=== PATIENT | male | born 1980 | race Caucasian/White ===

== ENCOUNTER 2018-08-01 02:01 | Inpatient (IN) | payer SELFPAY ==
[~2018-08-01] VITALS: Ht 160 cm; Wt 87.8 kg
[2018-08-01 02:06] VITALS: Ht 160 cm; Wt 87.8 kg
[2018-08-01 03:08] LABS: BASOPHIL % 0.4 % (0-2); PLATELET COUNT 284 x10^3mcL (130-400); RED CELL DISTRIBUTION WIDTH 13.2 % (11.5-14.5)
[2018-08-01 03:13] LABS: ALBUMIN 3.5 g/dL (3.4-5.0); ALKALINE PHOSPHATASE 119 U/L (46-116); BILIRUBIN TOTAL 0.4 mg/dL (0.20-1.00); CALCIUM 8.3 mg/dL (8.5-10.1); CARBON DIOXIDE 28.1 mmol/L (21-32); CHLORIDE SERUM 99 mmol/L (98-107); CREATININE SERUM 1.3 mg/dL (0.7-1.3); GFR1 > 60 mL/min; LIPASE 195 IU/L (73-393); SODIUM SERUM 136 mmol/L (136-145); TOTAL PROTEIN, SERUM 7.6 g/dL (6.4-8.2)
[2018-08-01 03:25] LABS: AST/SGOT 54 U/L (15-37)
[2018-08-01 03:26] LABS: GLUCOSE SERUM 146 mg/dL (74-106)
[2018-08-01 03:34] LABS: ALT/SGPT 62 U/L (16-63)
[2018-08-01 06:33] LABS: CHOLESTEROL 199 mg/dL (<200); MAGNESIUM 1.9 mg/dL (1.8-2.4); PHOSPHOROUS 3.3 mg/dL (2.5-4.9)
[2018-08-01 06:37] LABS: AMYLASE 125 U/L (25-115); CHOLESTEROL/HDL RATIO 6.4; HDL CHOLESTEROL 31 mg/dL (40-60); TRIGLYCERIDES 651 mg/dL (<150)
[2018-08-01 06:39] LABS: T3 TOTAL 1.58 ng/mL
[2018-08-01 06:43] LABS: FREE T4 1.17 ng/dL (0.76-1.46); FREE THYROXINE INDEX 3.7 ug/dL (1.4-4.5)
[2018-08-01 07:48] VITALS: BP 172/123
[2018-08-01 09:28] VITALS: BP 162/117
[2018-08-01 12:55] VITALS: BP 177/115
[2018-08-01 14:08] LABS: microscopic required? YES; urine erythrocyte NEGATIVE (NEGATIVE)
[2018-08-01 14:15] LABS: AMPHETAMINE QUAL UR NONE DETECTED (See below)
[2018-08-01 17:40] VITALS: BP 160/110
[2018-08-01 21:20] VITALS: BP 157/98
[2018-08-02 04:53] VITALS: BP 132/89
[2018-08-02 06:34] LABS: BASOPHIL % 0.6 % (0-2); PLATELET COUNT 260 x10^3mcL (130-400); RED CELL DISTRIBUTION WIDTH 13.7 % (11.5-14.5)
[2018-08-02 06:38] LABS: CALCIUM 8.4 mg/dL (8.5-10.1); CARBON DIOXIDE 28.6 mmol/L (21-32); CHLORIDE SERUM 107 mmol/L (98-107); GFR1 > 60 mL/min; GLUCOSE SERUM 109 mg/dL (74-106); POTASSIUM SERUM 3.7 mmol/L (3.5-5.1); SODIUM SERUM 142 mmol/L (136-145)
[2018-08-02 09:36] VITALS: BP 183/139
[2018-08-02 11:29] VITALS: BP 191/139
[2018-08-02 12:46] VITALS: BP 198/140
[2018-08-02 13:26] VITALS: BP 155/118
[2018-08-02 13:39] VITALS: BP 155/118
== END 2018-08-02 15:32 | disposition home or self-care (01) | DRG 205 ==
LOC: ED 02:01 → DU 05:51
PROVIDERS: Emergency Medicine; Family Medicine
DX: M94.0 Chondrocostal junction syndrome [Tietze] (principal); N17.0 Acute kidney failure with tubular necrosis; I24.9 Acute ischemic heart disease, unspecified; I10 Essential (primary) hypertension; E87.6 Hypokalemia; E78.5 Hyperlipidemia, unspecified; E02 Subclinical iodine-deficiency hypothyroidism; F10.10 Alcohol abuse, uncomplicated; Y90.9 Presence of alcohol in blood, level not specified
CPT/HCPCS: 83880; 84439; G0480; J2060; J3490; J7030

== ENCOUNTER 2018-08-13 12:51 | Inpatient (IN) | payer MEDICAID ==
[~2018-08-13] VITALS: Ht 160 cm; Wt 86.7 kg
[2018-08-13 12:57] VITALS: Ht 160 cm; Wt 86.7 kg
[2018-08-13 15:25] LABS: BASOPHIL % 0.7 % (0-2); PLATELET COUNT 260 x10^3mcL (130-400); RED CELL DISTRIBUTION WIDTH 13.3 % (11.5-14.5)
[2018-08-13 15:39] LABS: CALCIUM 8.9 mg/dL (8.5-10.1); CARBON DIOXIDE 25.5 mmol/L (21-32); CHLORIDE SERUM 101 mmol/L (98-107); CREATININE SERUM 1.1 mg/dL (0.7-1.3); GFR1 > 60 mL/min; GLUCOSE SERUM 98 mg/dL (74-106); POTASSIUM SERUM 3.2 mmol/L (3.5-5.1); SODIUM SERUM 139 mmol/L (136-145)
[2018-08-13 15:51] LABS: ALBUMIN 4.2 g/dL (3.4-5.0); ALKALINE PHOSPHATASE 120 U/L (46-116); ALT/SGPT 87 U/L (16-63); AST/SGOT 39 U/L (15-37); BILIRUBIN TOTAL 0.82 mg/dL (0.20-1.00); FREE T4 1.08 ng/dL (0.76-1.46); LIPASE 186 IU/L (73-393)
[2018-08-13 15:56] LABS: TOTAL PROTEIN, SERUM 8.4 g/dL (6.4-8.2)
[2018-08-13 16:18] LABS: UA SPECIFIC GRAVITY 1.015 (1.005-1.035); microscopic required? YES; urine erythrocyte TRACE (NEGATIVE)
[2018-08-13 16:23] LABS: AMPHETAMINE QUAL UR NONE DETECTED (See below)
[2018-08-13 16:27] LABS: OSMOLALITY SERUM 287 mOsm/kg (278-298)
[2018-08-13 19:39] LABS: MAGNESIUM 2.1 mg/dL (1.8-2.4); PHOSPHOROUS 2.6 mg/dL (2.5-4.9)
[2018-08-13 19:50] LABS: FREE T4 1.11 ng/dL (0.76-1.46); FREE THYROXINE INDEX 3.7 ug/dL (1.4-4.5); T3 TOTAL 1.54 ng/mL
[2018-08-13 19:56] LABS: CHOLESTEROL/HDL RATIO 4.9
[2018-08-13 21:18] VITALS: BP 177/130
[2018-08-13 22:35] VITALS: BP 146/107
[2018-08-14] VITALS (7 sets, daily range): BP systolic 143–181; BP diastolic 98–133
[2018-08-14 08:38] LABS: BASOPHIL % 0.4 % (0-2); PLATELET COUNT 269 x10^3mcL (130-400); RED CELL DISTRIBUTION WIDTH 13.7 % (11.5-14.5)
[2018-08-14 09:37] LABS: CALCIUM 8.7 mg/dL (8.5-10.1); CARBON DIOXIDE 25.2 mmol/L (21-32); CHLORIDE SERUM 105 mmol/L (98-107); CREATININE SERUM 1.1 mg/dL (0.7-1.3); GFR1 > 60 mL/min; GLUCOSE SERUM 114 mg/dL (74-106); POTASSIUM SERUM 3.6 mmol/L (3.5-5.1); SODIUM SERUM 140 mmol/L (136-145)
[2018-08-15 01:41] VITALS: BP 131/81
[2018-08-15 05:04] VITALS: BP 142/97
[2018-08-15 06:07] LABS: CALCIUM 9.1 mg/dL (8.5-10.1); CARBON DIOXIDE 27.7 mmol/L (21-32); CHLORIDE SERUM 106 mmol/L (98-107); CREATININE SERUM 1.2 mg/dL (0.7-1.3); GFR1 > 60 mL/min; GLUCOSE SERUM 100 mg/dL (74-106); MAGNESIUM 2.2 mg/dL (1.8-2.4); PHOSPHOROUS 3.9 mg/dL (2.5-4.9); POTASSIUM SERUM 3.8 mmol/L (3.5-5.1); SODIUM SERUM 141 mmol/L (136-145)
[2018-08-15 08:01] LABS: BASOPHIL % 0.5 % (0-2); PLATELET COUNT 254 x10^3mcL (130-400); RED CELL DISTRIBUTION WIDTH 13.8 % (11.5-14.5)
[2018-08-15 08:40] VITALS: BP 153/108
[2018-08-15] MEDS ORDERED: HYD25 PO (08:48)
[2018-08-15] MEDS ORDERED: ZES20 PO (08:48)
[2018-08-15 10:18] VITALS: BP 153/108
== END 2018-08-15 12:41 | disposition home or self-care (01) | DRG 199 ==
LOC: ED 12:51 → DU 18:58
PROVIDERS: Emergency Medicine; Family Medicine
DX: I16.0 Hypertensive urgency (principal); N17.0 Acute kidney failure with tubular necrosis; E87.6 Hypokalemia; R80.9 Proteinuria, unspecified; F10.20 Alcohol dependence, uncomplicated; R74.0 Nonspecific elevation of levels of transaminase and lactic acid dehydrogenase [LDH]; E78.5 Hyperlipidemia, unspecified; Y90.9 Presence of alcohol in blood, level not specified; Z68.34 Body mass index [BMI] 34.0-34.9, adult
CPT/HCPCS: 36600; 83880; 84439; 90658; G0480; J0360; J2060; J3475; J3490; J7030; Q0092